=== PATIENT | female | born 1960 | race Hispanic/Latino ===

== ENCOUNTER 2017-01-12 17:06 | Emergency (ER) | payer MEDICARE, MEDICAID ==
[~2017-01-12] VITALS: Ht 157.5 cm; Wt 76.8 kg
[~2017-01-12 17:06] MED LIST: CIPR-198 PO; ONDA4TAB9 PO
[2017-01-12 17:07] VITALS: BP 153/84; PULSE 84; RESP 20; O2SAT 99
--- NOTE | 2017-01-12 18:01 | ED.REPORT ---
HPI-Extremity Problem Upper Date of Service Jan 12, 2017 ED Provider: Doc,Ed MD History of Present Illness: 56-year-old here for right anterior chest and shoulder pain. On she was helping her daughter brain picker cans. No immediate pain with activity but later that day her right anterior chest started to hurt. it was much worse yesterday and today. She did Aleve but this did help but she has not taken it in 2 days. It hurts to laugh, take a deep breath, sneeze. She does not feel lightheaded or short of breath. Pain increases when she lifts his upper right arm or if you touch her right anterior chest. It occasionally shoots to her back. Denies cough/SOB Nursing Notes Stated Complaint: SHARP PAIN RT SHOULDER Chief Complaint: Extremity Trauma Nursing Notes Reviewed: Yes Allergies: Coded Allergies: No Known Allergies (Unverified Allergy, Unknown, 07/03/16) Scheduled Ciprofloxacin (Ciprofloxacin) 500 Mg Tablet 500 MG PO BID Scheduled PRN Ondansetron ODT (Zofran ODT) 4 Mg Tablet 4 MG PO Q4H PRN PRN For Nausea General Time Seen by MD: 18:01 Chief Complaint Shoulder injury right, Other (chest) Hx Obtained From: Patient Arrived By: Walk-in Onset Occurred: 4 days ago Context: Occurred at: Home injury Severity: Current: Moderate Severity: Maximum: Moderate Associated with: Reports: Chest pain Pertinent Negative: Pt denies other symptoms Exacerbated by: Range of motion Relieved by: Rest Similar Sx Previous: No Past Medical History Past Medical History depression, panic attacks, diabetes mellitus type II, hypertension, hypercholesterolemia Reports: Diabetes mellitus Past Surgical History Reports: Cholecystectomy Reports: Tubal ligation Smoking History Never Smoker Social History Alcohol Use: Denies alcohol use Drug Use: Denies drug use Occupation lives with daughter, no work or school 08/25/2016 Ambulatory Status Independent Review of Systems Review of Systems Note: R anterior cp, shoulder pain Basic Review of Systems Eyes: Vision NL, No discharge ENT: Hearing NL, No pain, No nasal congestion, No pharyngeal pain Respiratory: No shortness of breath, No cough, No wheeze Cardiovascular: No dyspnea on exertion, No orthopnea, No parox noct dyspnea, No palpitations GI: No abdominal pain, No anorexia, No nausea, No vomiting Psychiatric: Normal thought content Constitutional: Denies: Chills, Fatigue, Fever, Lethargy, Malaise, Recent wt loss, Weakness - generalized Musculoskeletal: Reports: Extremity pain (r shoulder) Complete sys rev & neg: except as marked. Cardiovascular: Reports: Chest pain (R anterior) Physical Exam Initial Vital Signs Vital Signs (First) Date Time Temp Pulse Resp B/P Pulse Ox O2 Delivery O2 Flow Rate FiO2 01/12/17 17:07 36 84 20 153/84 99 Room Air Initial VS: Reviewed, Vital signs normal Respiratory / Chest: Breath sounds NL, Breath sounds = bilat, No respiratory distress, No rales, No rhonchi, No wheezing Cardiovascular: Heart rate NL, Regular rhythm, Heart sounds NL, Peripheral circulation NL extreme tenderness to R ant chest. non tender R shoulder, Pain in chest radiates to shoulder when moving shoulder. Has FROM of shoulder, neck. Skin: Color NL, Warm, Dry, Intact, Turgor NL, No swelling Neurologic: Oriented X3, Speech NL, No motor deficits, No sensory deficits Discharge & Departure Impression: Primary Impression: Rib sprain Encounter type: initial encounter Qualified Code: S23.41XA - Sprain of ribs , initial encounter Disposition: Home Patient Instructions: Costochondritis (ED) Additional Instructions: Ibuprofen or Aleve for pain as needed. Gentle activity only with your right arm as tolerated. you may apply ice or heat as needed for pain as well. All of up if becoming short of breath, fevers, or altered mental status. Otherwise follow-up with your PCP for further treatment this week pain persists Referrals: Peggy Rao MD (PCP) EDSupervising Provider for APC: Richard Rice MD, Linnea K ARNP Jan 12, 2017 18:01
[2017-01-12 18:29] VITALS: BP 153/84; PULSE 84; RESP 20; O2SAT 99
== END 2017-01-12 18:28 | disposition home or self-care (01) ==
LOC: SED 17:06
DX: S23.41XA Sprain of ribs, initial encounter (principal); X50.9XXA Other and unspecified overexertion or strenuous movements or postures, initial encounter; Y93.89 Activity, other specified; Y92.019 Unspecified place in single-family (private) house as the place of occurrence of the external cause; Y99.8 Other external cause status; E11.9 Type 2 diabetes mellitus without complications; I10 Essential (primary) hypertension
CPT/HCPCS: 96372; 99283; J1885

== ENCOUNTER 2017-01-27 22:23 | Emergency (ER) | payer MEDICARE, MEDICAID ==
[~2017-01-27] VITALS: Ht 157.5 cm; Wt 81.4 kg
[2017-01-27 22:27] VITALS: BP 97/63; PULSE 120; RESP 16; O2SAT 98
--- NOTE | 2017-01-27 22:43 | ED.REPORT ---
HPI-Head Prob / Injury Date of Service Jan 27, 2017 ED Provider: Yo Roa MD Patient is a 56 year old female with a history of diabetes mellitus and hypertension who presents to the ED with neck pain following a ground level fall and episode of syncope this evening. The patient was walking from her bedroom to the kitchen when she suddenly felt unwell. The patient states that she felt lightheaded when she got up from her bed and then felt the need to have a bowel movement. She sat down and told her daughter that she might become incontinent. The patient then became less responsive and was incontinence of stool. The patient then fell from the toilet and was unresponsive. Her daughter states that it took some time for the patient to become responsive again, taking a great deal of effort. Patient states that she did not have diarrhea earlier today. Patient denies head pain, headache, numbness or weakness in her extremities, or sustaining any injuries. Patient reports shortness of breath at her baseline, but denies increased shortness of breath. Nursing Notes Stated Complaint: FELL DOWN HIT HEAD Chief Complaint: Head, Face, Neck Trauma Nursing Notes Reviewed: Yes Allergies: Coded Allergies: No Known Allergies (Unverified Allergy, Unknown, 07/03/16) Scheduled Ciprofloxacin (Ciprofloxacin) 500 Mg Tablet 500 MG PO BID Scheduled PRN Ondansetron ODT (Zofran ODT) 4 Mg Tablet 4 MG PO Q4H PRN PRN For Nausea General Time Seen by Provider: 22:44 Chief Complaint Loss of consciousness, Other (neck pain) Hx Obtained From: Patient Onset Occurred: Just prior to arrival Caused by: Fall from (ground) Location: : Neck Quality: Painful Severity: Current: Moderate Severity: Maximum: Moderate Recent Healthcare: No recent doctor visit, No recent hospitalization Similar Sx Previous: No Past Medical History Past Medical History depression, panic attacks Reports: Diabetes mellitus, Hyperlipidemia, Hypertension Past Surgical History Reports: Cholecystectomy Reports: Tubal ligation Smoking History Never Smoker Social History Alcohol Use: Denies alcohol use Drug Use: Denies drug use Other Social History: Good social support, Local resident Occupation lives with daughter, no work or school 08/25/2016 Ambulatory Status Independent Review of Systems GI: Reports: Diarrhea Musculoskeletal: Reports: Neck pain, Denies: Extremity pain Neurologic: Reports: Bowel dysfunction, Change LOC, Lightheaded, Syncope, Denies: Headache Complete sys rev & neg: except as marked. Physical Exam Initial Vital Signs Vital Signs (First) Date Time Temp Pulse Resp B/P Pulse Ox O2 Delivery O2 Flow Rate FiO2 01/27/17 22:27 36.7 120 16 97/63 98 Room Air Interpretation & Diagnostics Lab Results Interpretation Test 01/27/17 22:46 Hold Purple Top Tube Received (Received) Hold Blue Top Tube Received (Received) Hold [place] Top Tube Received (Received) Hold Melara Top Tube Received (Received) Re-Eval/Medical Decision Source of Hx: Old records Discharge & Departure All VS Reviewed: Yes Condition: Stable Referrals: Peggy Rao MD (PCP) Scribe Attestation Portions of this note were transcribed by Sharee Portillo. I, Dr. Roa personally performed the history, physical exam and medical decision-making; I reviewed and confirmed the accuracy of the information in the transcribed note. Signed by: Leland Pearl, 01/27/2017 2100 copies to: Peggy Rao MD, Christopher W MD Jan 27, 2017 22:43 Sharee Portillo Jan 27, 2017 22:50
[2017-01-27] MEDS ORDERED: 0.9% Sodium Chloride 1,000 ML IV ONE (22:58)
--- NOTE | 2017-01-27 22:58 | ED.REPORT ---
HPI-General Illness Date of Service Jan 27, 2017 ED Provider: Yo Roa MD Patient is a 56 year old female with a history of diabetes mellitus and hypertension who presents to the ED with neck pain following a ground level fall and episode of syncope this evening. The patient was walking from her bedroom to the kitchen when she suddenly felt unwell. The patient states that she became lightheaded when she got up from her bed and then felt the need to have a bowel movement. She sat down on the toilet and told her daughter that she might become incontinent. The patient then became less responsive and was incontinence of stool. The patient then fell from the toilet and was unresponsive. Her daughter states that it took some time for the patient to become responsive again, shaking her. Patient states that she did not have diarrhea earlier today. Patient denies head pain, headache, numbness or weakness , chest pain, in her extremities, or sustaining any injuries. Patient reports shortness of breath at her baseline, but denies increased shortness of breath. Nursing Notes Stated Complaint: FELL DOWN HIT HEAD Chief Complaint: Head, Face, Neck Trauma Nursing Notes Reviewed: Yes Allergies: Coded Allergies: No Known Allergies (Unverified Allergy, Unknown, 07/03/16) Scheduled Ciprofloxacin (Ciprofloxacin) 500 Mg Tablet 500 MG PO BID Scheduled PRN Ondansetron ODT (Zofran ODT) 4 Mg Tablet 4 MG PO Q4H PRN PRN For Nausea General Time Seen by MD: 22:42 Chief Complaint Other (syncope) Hx Obtained From: Patient Arrived By: Wheelchair Sudden in Onset?: Yes Onset Occurred: Just prior to arrival Symptom Duration: Since onset Location: : Neck Quality: Painful Severity: Current: Moderate Severity: Maximum: Moderate Recent Healthcare: No recent doctor visit, No recent hospitalization Similar Sx Previous: No Past Medical History Past Medical History depression, panic attacks Reports: Diabetes mellitus, Hyperlipidemia, Hypertension Past Surgical History Reports: Cholecystectomy Reports: Tubal ligation Smoking History Never Smoker Social History Alcohol Use: Denies alcohol use Drug Use: Denies drug use Other Social History: Good social support, Local resident Occupation lives with daughter Ambulatory Status Independent Review of Systems Full Review of Systems Respiratory: Denies: Shortness of breath (at baseline) Cardiovascular: Denies: Chest pain GI: Reports: Diarrhea Musculoskeletal: Reports: Neck pain, Denies: Extremity pain Neurologic: Reports: Bowel dysfunction, Change LOC, Lightheaded, Syncope, Denies: Headache, Numbness, Weakness Complete sys rev & neg: except as marked. Physical Exam Vital Signs Vital Signs Date Time Temp Pulse Resp B/P Pulse Ox O2 Delivery O2 Flow Rate FiO2 01/28/17 02:06 99 20 115/55 97 Room Air 01/28/17 00:53 100 14 101/65 99 01/27/17 22:27 36.7 120 16 97/63 98 Room Air Initial VS: Reviewed Skin: Warm, Dry, No cyanosis Neurologic: Alert, Oriented, Nonfocal General/Constitutional: Awake, Alert, No acute distress Head / Eyes: Atraumatic, Normocephalic, PERRL, EOMI ENT: Atraumatic, Airway patent Trauma - Neck Specific: Positive: Immobilized - C Collar Respiratory / Chest: Breath sounds NL, Breath sounds = bilat, No respiratory distress, No rales, No rhonchi, No wheezing Cardiovascular: Regular rhythm, Heart sounds NL, No murmurs Heart Rate / Rhythm: Positive: Tachycardia Abdomen: Soft, Non-tender, No guarding, No rebound Upper Extremities Upper Extremity / MS: Atraumatic, No deformity, Neurologic intact, Vascular intact Lower Extremity / Pelvis / MS: Atraumatic, No deformity, Neurologic intact, Vascular intact Neurologic: Oriented X3, Speech NL, No motor deficits, No sensory deficits, CN II - XII intact Interpretation & Diagnostics Lab Results Interpretation Result Diagram: 01/27/171 01/27/17 2241 Test 01/27/17 22:41 01/27/17 22:46 01/28/17 01:15 White Blood Count 11.3th/mm3 (3.8-10.1) Red Blood Count 4.19mil/mm3 (3.90-5.20) Hemoglobin 12.6g/dL (12.0-15.6) Hematocrit 37.7% (35.0-46.0) Mean Corpuscular Volume 90.0fL (81-100) Mean Corpuscular Hemoglobin 30.1pg (27.0-35.0) Mean Corpuscular Hemoglobin Concent 33.4% (32.0-37.0) Red Cell Distribution Width 12.5% (12.3-15.4) Platelet Count 391bil/L (150-400) Neutrophils (%) (Auto) 69.4% (40-74) Lymphocytes (%) (Auto) 25.0% (14-46) Monocytes (%) (Auto) 4.9% (4-12) Eosinophils (%) (Auto) 0.3% (0-5) Basophils (%) (Auto) 0.2% (0-3) Band Neutrophils % 0% (1-5) Prothrombin Time 10.1sec (8.1-12.5) Prothromb Time International Ratio 0.95ratio Activated Partial Thromboplast Time 22.5sec (22.8-33.0) D-Dimer 0.67mg/L FEU (<0.50) Sodium Level 138mEq/L (134-144) Potassium Level 3.9mEq/L (3.5-5.2) Chloride Level 99mEq/L (97-108) Carbon Dioxide Level 20mmol/L (18-29) Blood Urea Nitrogen 20mg/dL (6-24) Creatinine 1.04mg/dL (0.57-1.00) Estimat Glomerular Filtration Rate 78mL/min (>59) Glucose Level 205mg/dL (60-99) Calcium Level 9.4mg/dL (8.5-10.1) Magnesium Level 1.4mg/dL (1.6-2.6) Total Bilirubin 0.4mg/dL (0.0-1.2) Aspartate Amino Transf (AST/SGOT) 17U/L (0-50) Alanine Aminotransferase (ALT/SGPT) 13U/L (0-32) Alkaline Phosphatase 95U/L (25-150) Pro-B-Type Natriuretic Peptide 5.00pg/mL (0-287) Total Protein 7.5g/dL (6.4-8.4) Albumin 4.5g/dL (3.4-5.0) Hold Purple Top Tube Received (Received) Hold Blue Top Tube Received (Received) Hold [place] Top Tube Received (Received) Hold Melara Top Tube Received (Received) Troponin T 0.010ug/L (0.0-0.011) ECG Interpretation ECG Interpretation: Sinus tachycardia, rate 108 Inferior infarct, old Probable anterior infarct, old Time: 23:06 Interpreted by: ED physician Normal ECG Interpretation: No change from prior ECGs X-Ray Chest Interpretation Chest Xray Interpretation: Impression: No acute cardiopulmonary process. View: Portable Interpretation / Wet Read by: Wet read ED physician CT Head Interpretation Conclusion: No acute abnormality. Radiologist: Nimisha Ross MD 01/27/2017 11:45:19 PM PDT Study: Head CT no contrast Interpretation / Wet Read by: Interpret - Radiologist CT C-Spine Interpretation CONCLUSION: No evidence of fracture or subluxation. Straightening of the normal curve may be due to positioning or muscle spasm. Degenerative changes. Incidental periodontal disease. Radiologist: Nimisha Ross MD 01/27/2017 - 11:52:07 PM PDT Study type: CT no contrast Interpretation / Wet Read by: Interpret - Radiologist Re-Eval/Medical Decision Med Decision/Clinical Course 56-year-old presents after a syncopal episode tonight, precipitated by acute diarrhea. She had toilet level fall without apparent injury. Her lead-in symptoms sound entirely vagal. No chest pain or shortness of breath noted. Cardiac workup is negative. Head and neck are negative by CT. Discharged home in stable condition. Source of Hx: Old records Time of Eval: 00:19 Patient Status: Condition improved Re-Evaluation/Progress Note: Rechecked the patient. Her CT scans were negative and C-spine was cleared. No acute problem on x-ray or EKG. Awaiting repeat Troponin prior to discharge. Time of Eval: 02:00 Patient Status: Condition improved Re-Evaluation/Progress Note: Repeat troponin was negative. Patient understands and agrees with the plan to be discharged home. Discharge instructions and follow-up discussed. All questions were addressed. Return to the ED warnings given. Counseled Regarding: Diagnosis, Lab results, Need for follow-up, When/why to return to ED Discharge & Departure Primary Impression: Syncope Syncope type: unspecified Qualified Code: R55 - Syncope and collapse Additional Impression: Diarrhea Diarrhea type: unspecified type Qualified Code: R19.7 - Diarrhea, unspecified Disposition: Home Discharge Condition All VS Reviewed: Yes Condition: Stable Patient Instructions: Acute Diarrhea (ED), Syncope (ED) Additional Instructions: The source of your faint appears to be a vagal episode, related to your diarrhea. There is no evidence of cardiac disease or other dangerous cause. Drink plenty of fluids and stay hydrated Follow-up with your doctor in the office Return here promptly if this recurs or you have other new symptoms of concern. Referrals: Peggy Rao MD (PCP) Maryseibluis antonio Attestation Portions of this note were transcribed by Sharee Portillo. I, Dr. Roa personally performed the history, physical exam and medical decision-making; I reviewed and confirmed the accuracy of the information in the transcribed note. Signed by: Leland Pearl, 01/28/2017 0212 copies to: Peggy Rao MD, Christopher W MD Jan 27, 2017 22:58 Sharee Portillo Jan 27, 2017 23:01
[2017-01-27 23:36] LABS: Mean Corpuscular Hemoglobin 30.1 pg (27.0-35.0)
[2017-01-27 23:37] LABS: BASOPHILS % (AUTO) 0.2 % (0-3); EOSINOPHILS % (AUTO) 0.3 % (0-5); MONOCYTES % (AUTO) 4.9 % (4-12); NEUTROPHILS % (AUTO) 69.4 % (40-74); Platelet Count 391 bil/L (150-400)
[2017-01-27 23:39] LABS: D-Dimer 0.67 mg/L FEU (<0.50); INR 0.95 ratio
[2017-01-28 00:04] LABS: Magnesium 1.4 mg/dL (1.6-2.6)
[2017-01-28 00:53] VITALS: BP 101/65; PULSE 100; RESP 14; O2SAT 99
[2017-01-28 02:06] VITALS: BP 115/55; PULSE 99; RESP 20; O2SAT 97
--- NOTE | 2017-01-28 08:27 | DRSVH ---
PROCEDURE: CT BRAIN WITHOUT CONTRAST ([id number]) INDICATIONS: syncope, glf TECHNIQUE: Noncontrast 4.5 mm thick angled axial sections acquired from the foramen magnum to the vertex, with c oronal reformats. COMPARISON: None. FINDINGS: Image quality: Excellent. CSF spaces: Basal cisterns are patent. No extra-axial fluid collections. The ventricles are symmet brandi in size and shape. Brain: No intracranial bleeds or masses. There is cerebral volume loss for age, with resultant vent ricular and sulcal prominence. There are periventricular and deep white matter chronic small vessel ischemic changes. There is intracranial internal carotid artery atherosclerosis. Skull and face: Calvarium and visualized facial bones appear intact, without suspicious lesions. Sinuses: Visualized sinuses and mastoids are clear. IMPRESSION: No acute intracranial disease process. Dictated by: Paris Freeman MD, PhD on 01/28/2017 at 8:23 Approved by: Paris Freeman MD, PhD on 01/28/2017 at 8:25
--- NOTE | 2017-01-28 08:55 | DRSVH ---
PROCEDURE: X-RAY CHEST ONE VIEW, PORTABLE ([id number]) INDICATIONS: syncope TECHNIQUE: One view of the chest was acquired. COMPARISON: [facility], CR, XR CHEST 1VW (PORTABLE), 08/07/2016, 16:20. FINDINGS: Surgical changes and devices: Cholecystectomy clips. Lungs and pleura: No pleural effusions or pneumothorax. Lungs are clear. Mediastinum: Mediastinal contours appear normal. Heart size is normal. Bones and chest wall: No suspicious bony lesions. Overlying soft tissues appear unremarkable. IMPRESSION: No acute cardiopulmonary disease. Dictated by: Kal Esquivel [facility] Interpreted: Grant Kennedy MD on 01/28/2017 at 8:54 Transcribed by: JULIENNE on 01/28/2017 at 8:54 Approved by: Grant Kennedy M.D. on 01/28/2017 at 15:39
--- NOTE | 2017-01-28 10:01 | DRSVH ---
PROCEDURE: CT CERVICAL SPINE WITHOUT CONTRAST ([id number]) INDICATIONS: syncope, glf TECHNIQUE: Noncontrast 3 mm thick sections acquired from the skull base to the T4 level. Sagittal and coronal r eformats were then constructed. For radiation dose reduction, the following was used: automated exp osure control, adjustment of mA and/or kV according to patient size. COMPARISON: None. FINDINGS: Image quality: Excellent. Bones: No fractures or dislocations. There is trace C4-C5 anterolisthesis. Multilevel degenerative d isc disease and facet arthropathy are noted. Visualized superior ribs are intact. Note made of an pe riapical lucencies surrounding the visualized lower molars bilaterally. Soft tissues: Prevertebral soft tissues are normal in thickness. No paravertebral hematomas. No ap ical pneumothoraces. IMPRESSION: 1. No fracture. No acute osseous lesion. If symptoms and/or clinical suspicion for pathology persists , evaluation with MRI may be helpful for further assessment. 2. Incidentally noted periodontal disease. Recommend dental consultation. Dictated by: Paris Freeman MD, PhD on 01/28/2017 at 9:51 Approved by: Paris Freeman MD, PhD on 01/28/2017 at 10:00
== END 2017-01-28 02:07 | disposition home or self-care (01) ==
LOC: SED 22:23
DX: R55 Syncope and collapse (principal); R19.7 Diarrhea, unspecified; M54.2 Cervicalgia; W18.11XA Fall from or off toilet without subsequent striking against object, initial encounter; Y92.002 Bathroom of unspecified non-institutional (private) residence as the place of occurrence of the external cause; Y93.89 Activity, other specified; Y99.8 Other external cause status; R06.02 Shortness of breath; E11.9 Type 2 diabetes mellitus without complications; I10 Essential (primary) hypertension; E78.5 Hyperlipidemia, unspecified
CPT/HCPCS: 36415; 70450; 71010; 72125; 80053; 83735; 83880; 84484; 85025; 85378; 85610; 85730; 93005; 96360; 99285; J7030